=== PATIENT | female | born 1965 | race Caucasian/White ===

== ENCOUNTER 2020-07-12 14:30 | Emergency (ER) | payer OTHER ==
[~2020-07-12] VITALS: Ht 154.9 cm; Wt 80.7 kg
[2020-07-12 14:38] VITALS: BP 139/71
[2020-07-12] MEDS ORDERED: DOCUSATE SODIUM LIQ 100 MG/10 ML UDC ONE (15:38)
[2020-07-12] MEDS ORDERED: ACETAMINOPHEN ES 500 MG TABLET ONE (15:38)
[2020-07-12] MEDS: DOCUSATE SODIUM LIQ 100 MG/10 ML UDC XX ONE (15:42)
[2020-07-12] MEDS: ACETAMINOPHEN ES 500 MG TABLET PO ONE (15:42)
--- NOTE | 2020-07-12 16:53 | NUR ---
EAR IRRIGATED. Patient discharged to home in stable condition. Written and verbal after care instructions given. Patient verbalizes understanding of instruction.
== END 2020-07-12 16:54 | disposition home or self-care (01) ==
LOC: ER 14:39
DX: H72.92 Unspecified perforation of tympanic membrane, left ear (principal); H61.22 Impacted cerumen, left ear
CPT/HCPCS: 71045-TC